=== PATIENT | male | born 1960 | race African-American/Black ===

== ENCOUNTER 2018-03-20 16:43 | Emergency (ER) | payer OTHER ==
[2018-03-20] MEDS: DIPHTH/TET/ACEL PERTUSS (ADULT) 0.5 ML VIAL IM* (18:24)
== END 2018-03-20 18:35 | disposition home or self-care (01) ==
LOC: FTE 16:43
DX: S61.412A Laceration without foreign body of left hand, initial encounter (principal); W26.8XXA Contact with other sharp object(s), not elsewhere classified, initial encounter; Y92.9 Unspecified place or not applicable; Z23 Encounter for immunization; Z87.891 Personal history of nicotine dependence
CPT/HCPCS: 90471; 90715; 99283-25